=== PATIENT | male | born 1970 | race Caucasian/White ===

== ENCOUNTER 2016-11-06 15:05 | Emergency (ER) | payer OTHER ==
[2016-11-06] MEDS ORDERED: ACETAMINOPHEN 325 MG TABLET (FP) PO ONE (15:13)
[2016-11-06] MEDS ORDERED: METHOCARBAMOL 500 MG TABLET PO ONE (15:13)
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
[2016-11-06 15:14] VITALS: BP 153/84; PULSE 74; BMI 28.5
[2016-11-06] MEDS ORDERED: ACETAMINOPHEN 325 MG TABLET (FP) ONE (15:33)
[2016-11-06] MEDS ORDERED: METHOCARBAMOL 500 MG TABLET ONE (15:34)
[2016-11-06] MEDS ORDERED: IBUPROFEN 600 MG TABLET (FP) PO ONE ×2 (16:49→17:06)
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
== END 2016-11-06 18:49 | disposition home or self-care (01) ==
LOC: JER 15:05
DX: S39.012A Strain of muscle, fascia and tendon of lower back, initial encounter (principal); W22.01XA Walked into wall, initial encounter; Y93.89 Activity, other specified; Y92.89 Other specified places as the place of occurrence of the external cause; Y99.0 Civilian activity done for income or pay; F90.9 Attention-deficit hyperactivity disorder, unspecified type
CPT/HCPCS: 72100-TC; 99282-25

== ENCOUNTER 2020-07-03 08:19 | Day surgery (SDC) | payer BC ==
--- OUTSIDE RECORDS SUMMARY | 2020-06-21 13:15 | XMS ---
:1970 Author Organization [facility] Care Team Providers Name Role Phone JEFFRY RASMUSSEN Unavailable Unavailable Re-disclosure Warning The records that you are about to access may contain information from federally- assisted alcohol or drug abuse programs. If such information is present, then the following federally mandated warning applies: This information has been disclosed to you from records protected by federal confidentiality rules (42 CFR part 2). The federal rules prohibit you from making any further disclosure of this information unless further disclosure is expressly permitted by the written consent of the person to whom it pertains or as otherwise permitted by 42 CFR part 2. A general authorization for the release of medical or other information is NOT sufficient for this purpose. The Federal rules restrict any use of the information to criminally investigate or prosecute any alcohol or drug abuse patient.The records that you are about to access may contain highly sensitive health information, the redisclosure of which is protected by Article 27-F of the [facility] Public Health law. If you continue you may haveaccess to information: Regarding HIV / AIDS; Provided by facilities licensed or operated by the [facility] Office of Mental Health; or Provided by the [facility] Office for People With Developmental Disabilities. If such information is present, then the following [facility] mandated warning applies: This information has been disclosed to you from confidential records which are protected by state law. State law prohibits you from making any further disclosure of this information without the specific written consent of the person to whom it pertains, or as otherwise permitted by law. Any unauthorized further disclosure in violation of state law may result in a fine or [place] health care facility sentence or both. A general authorization for the release of medical or other information is NOT sufficient authorization for further disclosure. Encounters Encounter Providers Location Date Indications Data Source(s ) Outpatient Attender: GRADY, 12/30/2019 Z01.84 [facility] JEFFRY GutiérrezAdmitter: 06:00:00 AM Health Care JEFFRY RASMUSSEN EDT Corporatio n E.Referrer: JEFFRY RASMUSSEN Z.84 Insurance Providers Payer name Policy type Policy ID Covered Covered green party's Policy P mahi / Coverage green party ID relationship to [facility] type [facility] [id number] SP [id number] [place] [id number] SP [id number] [facility] DEPT. Problems, Conditions, and Diagnoses Code Display Name Description Problem Type Effective Dates Data Source(s) Z84 Encounter for ENCOUNTER FOR Diagnosis 12/30/2019 [facility] antibody response ANTIBODY RESPONSE 06:00:00 AM EDT [facility] examination EXAMINATION Care Corpora tion
[2020-06-28 16:13] VITALS: BMI 30.5
[2020-07-03] MEDS ORDERED: LIDOCAINE HCL/PF 2% SDV 5ML VIAL ONE (08:28)
[2020-07-03] MEDS ORDERED: PROPOFOL 20 ML ONE ×3 (08:28)
--- OUTSIDE RECORDS SUMMARY | 2020-07-03 08:31 | XMS ---
:1970 [facility] Providers Name Role Phone JEFFRY [...] is protected by Article 27-F of the [facility] Public Health law. If you continue you may haveaccess to information: Regarding HIV / AIDS; Provided by facilities licensed or operated by the [facility] Office of Mental Health; or Provided by the [facility] Office for People With Developmental Disabilities. If such information is present, then the following [facility] mandated warning applies: This information has [...] law may result in a fine or [facility] sentence or both. A general authorization for the release of medical or other information is NOT sufficient authorization for further disclosure. Encounters Encounter Providers Location Date Indications Data Source(s ) Outpatient Attender: GRADY, 12/30/2019 Z01.84 [facility] JEFFRY GutiérrezAdmitter: 06:00:00 AM Health Care JEFFRY RASMUSSEN EDT Corporatio n E.Referrer: JEFFRY RASMUSSEN Z.84 Insurance Providers Payer name Policy type Policy ID Covered Covered republican's Policy P mahi / Coverage republican ID relationship to [employer] [facility] type wright [facility] [id number] SP [id number] [place] [id number] SP [id number] [facility] DEPT. Problems, Conditions, and Diagnoses Code Display Name Description Problem Type Effective Dates Data Source(s) Z84 Encounter for ENCOUNTER FOR Diagnosis 12/30/2019 [facility] antibody response ANTIBODY RESPONSE 06:00:00 AM EDT [facility] examination EXAMINATION Care Corpora tion
[2020-07-03 08:36] VITALS: TEMP 98.4
[2020-07-03 10:45] VITALS: BP 110/66; PULSE 74
--- NOTE | 2020-07-05 16:21 | PATH ---
Surgical Pathology Report Patient Name: ADINA MELGOZA [facility]. Rec. #: [id number] /Age/Gender: 1970 (Age: 49) / M Account: [id number] Location: [facility] Taken: 07/03/2020 Received: 07/03/2020 Reported: 07/05/2020 Physicians: Mati Fajardo M.D. Specimen(s) Received A: BIOPSY POLYP PROXIMAL RIGHT COLON B: BIOPSY POLYP TRANSVERSE COLON C: BIOPSY POLYP DISTAL SIGMOID COLON Clinical History Screening Postoperative diagnosis: Colon polyps, diverticulosis Final Diagnosis A. PROXIMAL RIGHT COLON, POLYP, POLYPECTOMY: TUBULAR ADENOMA. B. TRANSVERSE COLON, POLYP, POLYPECTOMY: SESSILE SERRATED POLYP C. DISTAL SIGMOID COLON, POLYP, POLYPECTOMY: SESSILE SERRATED POLYP. Electronically Signed Pia Jose M.D. Gross Description A. Received in formalin, labeled "biopsy polyp proximal right colon" are 2 lo, irregular portions of soft tissue measuring 0.2 and 0.3 cm. in greatest dimension. The specimens are submitted in toto in one cassette. B. Received in formalin, labeled "biopsy polyp transverse colon" is a lo, irregular portion of soft tissue measuring 0.8 cm. in greatest dimension. The specimen is submitted in toto in one cassette. C. Received in formalin, labeled "biopsy polyp distal sigmoid colon" is a lo, irregular portion of soft tissue measuring 0.4 cm. in greatest dimension. The specimen is submitted in toto in one cassette. 07/04/2020 saudi07/04/2020
== END 2020-07-03 10:15 | disposition home or self-care (01) ==
LOC: FASU-ENDO 08:19
PROVIDERS: ATTEND Internal Medicine Gastroenterology
PROC: 0DBN8ZX Excision of Sigmoid Colon, Via Natural or Artificial Opening Endoscopic, Diagnostic (ICD-10-PCS; 2020-07-03)
PROC: 0DBL8ZX Excision of Transverse Colon, Via Natural or Artificial Opening Endoscopic, Diagnostic (ICD-10-PCS; 2020-07-03)
PROC: 0DBK8ZX Excision of Ascending Colon, Via Natural or Artificial Opening Endoscopic, Diagnostic (ICD-10-PCS; principal; 2020-07-03 09:15)
DX: D12.2 Benign neoplasm of ascending colon (principal); D12.4 Benign neoplasm of descending colon; D12.7 Benign neoplasm of rectosigmoid junction; K57.30 Diverticulosis of large intestine without perforation or abscess without bleeding
CPT/HCPCS: 88305-TC

== ENCOUNTER 2021-01-14 20:58 | Emergency (ER) | payer BC, OTHER ==
[2021-01-14 21:08] VITALS: BP 152/89; PULSE 80; TEMP 97.7; BMI 26.9
[2021-01-14] MEDS ORDERED: ACETAMINOPHEN 1000 MG/100 ML VIAL (NON FORMULARY) IVPB ONE (21:08)
[2021-01-14] MEDS ORDERED: ACETAMINOPHEN 500 MG TABLET (FP) PO ONE (21:12)
[2021-01-14] MEDS ORDERED: ACETAMINOPHEN 325 MG TABLET (FP) ONE (21:15)
== END 2021-01-14 22:31 | disposition home or self-care (01) ==
LOC: JER 20:58
DX: G44.319 Acute post-traumatic headache, not intractable (principal)
CPT/HCPCS: 99283-25

== ENCOUNTER 2022-04-16 17:52 | Emergency (ER) | payer OTHER ==
[2022-04-16 18:08] VITALS: BP 113/71; PULSE 82; RESP 18; TEMP 98.2; BMI 29.1
[2022-04-16] MEDS ORDERED: KETOROLAC TROMETHAMINE 30 MG/1 ML VIAL IM ONE (18:13)
[2022-04-16] MEDS ORDERED: KETOROLAC TROMETHAMINE 30 MG/1 ML VIAL ONE (18:39)
== END 2022-04-16 19:02 | disposition home or self-care (01) ==
LOC: JERFT 17:52
PROC: 3E0233Z Introduction of Anti-inflammatory into Muscle, Percutaneous Approach (ICD-10-PCS; principal; 2022-04-16)
DX: M25.561 Pain in right knee (principal); M25.562 Pain in left knee; W10.9XXA Fall (on) (from) unspecified stairs and steps, initial encounter
CPT/HCPCS: 73562-TC-LT-FY; 73562-TC-RT-FY; 99284-25

== ENCOUNTER 2023-09-04 07:43 | Day surgery (SDC) | payer BC, OTHER ==
[2023-09-01 13:53] VITALS: BMI 29.8
[2023-09-04 09:06] VITALS: TEMP 97.6
[2023-09-04 09:09] VITALS: BP 116/68; PULSE 65; RESP 19
== END 2023-09-04 09:15 | disposition home or self-care (01) ==
LOC: FASU-ENDO 07:43
PROVIDERS: ATTEND Internal Medicine Gastroenterology
PROC: 0DBL8ZX Excision of Transverse Colon, Via Natural or Artificial Opening Endoscopic, Diagnostic (ICD-10-PCS; 2023-09-04)
PROC: 0DBH8ZX Excision of Cecum, Via Natural or Artificial Opening Endoscopic, Diagnostic (ICD-10-PCS; 2023-09-04)
PROC: 0DBK8ZX Excision of Ascending Colon, Via Natural or Artificial Opening Endoscopic, Diagnostic (ICD-10-PCS; principal; 2023-09-04 08:18)
DX: Z12.11 Encounter for screening for malignant neoplasm of colon (principal); D12.2 Benign neoplasm of ascending colon; D12.4 Benign neoplasm of descending colon; K63.5 Polyp of colon; K57.30 Diverticulosis of large intestine without perforation or abscess without bleeding; Z80.0 Family history of malignant neoplasm of digestive organs
CPT/HCPCS: 88305-TC

== ENCOUNTER 2024-01-14 07:34 | Day surgery (SDC) | payer BC ==
[2024-01-08 13:54] VITALS: BMI 29.8
[2024-01-14 07:47] VITALS: TEMP 97.3
[2024-01-14] MEDS ORDERED: PROPOFOL 40 ML ONE (07:53)
[2024-01-14] MEDS ORDERED: LIDOCAINE HCL/PF 2% SDV 5ML VIAL ONE (07:53)
[2024-01-14 10:55] VITALS: RESP 17
[2024-01-14 10:59] VITALS: BP 111/74; PULSE 63
== END 2024-01-14 09:15 | disposition home or self-care (01) ==
LOC: FASU-ENDO 07:34
PROVIDERS: ATTEND Internal Medicine Gastroenterology
PROC: 0DB68ZX Excision of Stomach, Via Natural or Artificial Opening Endoscopic, Diagnostic (ICD-10-PCS; 2024-01-14)
PROC: 0DB48ZX Excision of Esophagogastric Junction, Via Natural or Artificial Opening Endoscopic, Diagnostic (ICD-10-PCS; 2024-01-14)
PROC: 0D748DZ Dilation of Esophagogastric Junction with Intraluminal Device, Via Natural or Artificial Opening Endoscopic (ICD-10-PCS; 2024-01-14)
PROC: 0DB98ZX Excision of Duodenum, Via Natural or Artificial Opening Endoscopic, Diagnostic (ICD-10-PCS; principal; 2024-01-14 08:16)
DX: K29.80 Duodenitis without bleeding (principal); K29.50 Unspecified chronic gastritis without bleeding; K21.00 Gastro-esophageal reflux disease with esophagitis, without bleeding; K31.89 Other diseases of stomach and duodenum; K22.2 Esophageal obstruction; K44.9 Diaphragmatic hernia without obstruction or gangrene; R10.13 Epigastric pain
CPT/HCPCS: 88305-TC; 88342-TC